=== PATIENT | female | born 1990 | race Caucasian/White ===

== ENCOUNTER 2017-08-22 04:18 | Emergency (ER) | payer OTHER ==
[~2017-08-22] VITALS: Ht 152.4 cm; Wt 113.4 kg
[2017-08-22 05:11] LABS: ABSOLUTE EOSINOPHILS 0.1 thou/uL (0.0-0.7); ABSOLUTE LYMPHOCYTES 2.6 thou/uL (0.8-5.3); ABSOLUTE MONOCYTES 1.1 thou/uL (0.0-1.2); ABSOLUTE NEUTROPHILS 8.5 thou/uL (1.6-8.1); BASOPHILS 0.4 %; HEMATOCRIT 38.1 % (37.0-47.0); LYMPHOCYTES 20.7 %; MCH 31.3 pg (26.0-34.0); MCHC 34.1 g/dL (28.0-37.0); MCV 91.7 fL (80.0-100.0); MONOCYTES 8.7 %; MPV 8.2 fl. (7.2-11.1); NUCLEATED RBCS 0 /100WBC; PLATELET COUNT* 279 thou/uL (150-400); POLYS 69.2 %; RBC 4.15 mil/uL (4.20-5.00); RDW-CV 12.2 % (10.5-14.5); WBC 12.4 thou/uL (4.0-11.0)
[2017-08-22 05:25] LABS: CALCIUM 8.7 mg/dL (8.5-10.1); CREATININE 0.6 mg/dL (0.6-1.3); POTASSIUM 3.9 mmol/L (3.5-5.1)
[2017-08-22] MEDS ORDERED: HYDROCODONE-AP1 EAC6 PO (06:24)
[2017-08-22] MEDS ORDERED: CLEOCIN HCL150 MG PO (06:24)
[2017-08-22] MEDS ORDERED: ZOFRAN ODT4 MG PO (06:25)
[2017-08-22 07:39] VITALS: BP 130/77
== END 2017-08-22 07:41 | disposition home or self-care (01) ==
LOC: M.ERS 04:18
PROVIDERS: Emergency Medicine
DX: K04.7 Periapical abscess without sinus (principal); F17.210 Nicotine dependence, cigarettes, uncomplicated; Z88.2 Allergy status to sulfonamides

== ENCOUNTER 2020-03-20 11:42 | Emergency (ER) | payer OTHER ==
[~2020-03-20] VITALS: Ht 149.9 cm; Wt 131.5 kg
[~2020-03-20 11:42] MED LIST: CLEOCIN HCL150 MG PO; HYDROCODONE-AP1 EAC6 PO; ZOFRAN ODT4 MG PO
[2020-03-20] MEDS ORDERED: CENTANY30 GM TOP (12:37)
[2020-03-20 13:01] VITALS: BP 155/102
== END 2020-03-20 13:08 | disposition home or self-care (01) ==
LOC: M.ERS 11:42
DX: S30.92XA Unspecified superficial injury of abdominal wall, initial encounter (principal); Z88.2 Allergy status to sulfonamides; X16.XXXA Contact with hot heating appliances, radiators and pipes, initial encounter; Y93.89 Activity, other specified; Y92.89 Other specified places as the place of occurrence of the external cause; Y99.8 Other external cause status